=== PATIENT | female | born 1940 | race Caucasian/White ===

== ENCOUNTER 2016-08-11 19:48 | Emergency (ER) | payer OTHER, BC, MEDICARE ==
[~2016-08-11] VITALS: Ht 161.3 cm; Wt 66.0 kg
[2016-08-11 19:54] VITALS: BP 162/69; PULSE 73; RESP 14; TEMP 98; O2SAT 97
[2016-08-11] MEDS ORDERED: LIPI10TA PO (21:25)
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
[2016-08-11] MEDS ORDERED: ROBA500T PO (22:33)
[2016-08-11] MEDS ORDERED: IBUP-232 PO (22:33)
== END 2016-08-11 22:54 | disposition home or self-care (01) ==
LOC: NEPB 19:48
DX: S16.1XXA Strain of muscle, fascia and tendon at neck level, initial encounter (principal); S00.83XA Contusion of other part of head, initial encounter; V49.88XA Car occupant (driver) (passenger) injured in other specified transport accidents, initial encounter; Y92.410 Unspecified street and highway as the place of occurrence of the external cause
CPT/HCPCS: 70450; 70486; 72125